=== PATIENT | male | born 1980 | race Caucasian/White ===

== ENCOUNTER 2018-01-23 23:26 | Emergency (ER) | payer BC, SELFPAY ==
[2018-01-23 23:31] VITALS: BP 168/95; PULSE 89; RESP 18; TEMP 37.1; O2SAT 98
--- NOTE | 2018-01-23 23:37 | W.ED.GENAD ---
Discharge Plan Disposition Patient Disposition: HOME Condition: Improving Discharge Details Chief Complaint: EyeProblem Clinical Impression: Acute foreign body of left cornea Primary Care Provider: NONE,NONE ED Provider: Nithin Griffin Home Meds and New Rx's Prescriptions: No Action No Known Home Meds RF: 0 Discharge Instructions Instructions: Corneal Abrasion (ED) Additional Instructions: Please call [facility] eye care on Thursday for a follow-up appointment. Use antibiotic ointment as directed 3-4 times daily. Apply cool compress. May use Tylenol and/or ibuprofen as needed for discomfort. Return to the emergency department for any acute concerns. Medical Decision Making 37-year-old male with metallic foreign object to the left cornea. It is just infero-latter-day to the axis of vision. Patient was anesthetized and examined with floor seen by slit lamp. I was able to lift most of the foreign body out but there does appear to be metallic rust ring remaining. Patient is pre-standing relationship with [facility]. We will administer antibiotic ointment, he will follow-up with [facility] for recheck, return to emerge part for any acute concerns. HPI General Mode of arrival: ambulatory. Date/Time Provider Initiated Documentation: 01/23/18 23:37. Limitations to Documentation: no limitations. History of Present Illness 37 year old M presents to the emergency department with the chief complaint of Left eye foreign body, described as moderate, Quality is described as aching, and is localized to the left. Patient reports no radiation. Patient started experiencing this hour(s) and it has been constant. No relieving factors improve symptom(s), No exacerbating factors reported . Related Data Home Medications Medication Instructions Recorded Confirmed Unknown [No Known Home Meds] 01/23/18 01/23/18 Allergies Allergy/AdvReac Type Severity Reaction Status Date / Time No Known Allergies Allergy Unverified 01/23/18 23:31 General Stated Complaint: EyeProblem RAYMUNDO: 4 Review of Systems Review of Systems 4 reviewed and otherwise neg PFSH Social History Smoking/Tobacco Use Status: Never Exam Narrative Exam Narrative: GEN: awake, alert, oriented 3. Pleasant, well groomed, interactive. HEAD: Normocephalic, atraumatic ENT: Mucous membranes moist, oropharynx unremarkable, External ear exam unremarkable EYES: PERRL, EOMI. the left conjunctiva are injected. There is foreign body present just below the axis of vision of the left eye in the inferotemporal aspect. No Lakshmi sign. NECK: Full ROM, no PORTIA, no menigismus Neuro: Grossly normal neurologic exam, conversant, interactive. Psych: Speech fluent, thoughts congruent, affect normal Course Vital Signs Temperature 37.1 C 01/23/18 23:31 Pulse 89 01/23/18 23:31 Respiratory Rate 18 01/23/18 23:31 Blood Pressure 168/95 H 01/23/18 23:31 Pulse Oximetry 98 01/23/18 23:31 Temperature 37.1 C 01/23/18 23:31 Temperature Source Temporal Artery Scan 01/23/18 23:31 Pulse 89 01/23/18 23:31 Respiratory Rate 18 01/23/18 23:31 Respiratory Effort 01/23/18 23:31 Blood Pressure 168/95 H 01/23/18 23:31 Blood Pressure Position Sitting 01/23/18 23:31 Pulse Oximetry 98 01/23/18 23:31 Oxygen Delivery Method Room Air 01/23/18 23:31 Oxygen Flow Rate 0 01/23/18 23:31 Pain Level 0 01/23/18 23:31 Procedures FB Removal Eye Location: eye (L) Topical anesthetic used: tetracaine Foreign body: metal Evidence of corneal penetration: No Technique: cotton tip swab and needle Procedure performed under: slit-lamp Post-procedure medication: ophthalmic antibiotic Patient tolerated procedure: well Complications: residual rust ring
[2018-01-23] MEDS: Tetracaine 0.5% 4 ML BTL (23:40)
[2018-01-24] MEDS: Erythromycin Ophth Oint 3.5 GM TUBE OS (00:16)
== END 2018-01-24 00:17 | disposition home or self-care (01) ==
LOC: ER 01-24 00:18
PROVIDERS: Emergency Provider Emergency Medicine
DX: T15.02XA Foreign body in cornea, left eye, initial encounter (principal); X58.XXXA Exposure to other specified factors, initial encounter
CPT/HCPCS: 99283